=== PATIENT | male | born 1995 | race Caucasian/White ===

== ENCOUNTER 2018-05-16 21:55 | Emergency (ER) | payer OTHER ==
[~2018-05-16] VITALS: Ht 182.9 cm; Wt 68.0 kg
[2018-05-17 00:25] VITALS: BP 135/77
== END 2018-05-17 00:27 | disposition home or self-care (01) ==
LOC: ER 21:55
DX: S01.111A Laceration without foreign body of right eyelid and periocular area, initial encounter (principal); V49.50XA Passenger injured in collision with unspecified motor vehicles in traffic accident, initial encounter; Y93.89 Activity, other specified; Y92.89 Other specified places as the place of occurrence of the external cause; Y99.8 Other external cause status